=== PATIENT | female | born 1980 | race Caucasian/White ===

== ENCOUNTER 2023-07-16 07:32 | Day surgery (SDC) | payer MEDICAID ==
[2023-07-16] MEDS ORDERED: Propofol 200 MG/20 ML SDV IV ONE (07:33)
[2023-07-16] MEDS ORDERED: Lactated Ringers 1,000 ML IV SCH (07:45)
[2023-07-16] MEDS ORDERED: Sodium Chloride 0.9% 10 ML Syringe FLUSH PRN (07:45)
[2023-07-16 11:34] VITALS: BP 110/52; PULSE 56
== END 2023-07-16 10:35 | disposition home or self-care (01) ==
LOC: FB.SDS 07:32
PROVIDERS: ATTEND Surgery
DX: K29.50 Unspecified chronic gastritis without bleeding (principal); K44.9 Diaphragmatic hernia without obstruction or gangrene; K20.90 Esophagitis, unspecified without bleeding; R63.4 Abnormal weight loss; G47.00 Insomnia, unspecified; M25.552 Pain in left hip; F41.1 Generalized anxiety disorder; F90.2 Attention-deficit hyperactivity disorder, combined type; F17.210 Nicotine dependence, cigarettes, uncomplicated; Z79.899 Other long term (current) drug therapy; Z88.2 Allergy status to sulfonamides; Z98.84 Bariatric surgery status
CPT/HCPCS: 88305; 88342; J2704; J7120